=== PATIENT | male | born 1985 | race Caucasian/White ===

== ENCOUNTER 2018-09-13 18:31 | Emergency (ER) | payer OTHER ==
[~2018-09-13] VITALS: Ht 177.8 cm; Wt 86.2 kg
--- NOTE | 2018-09-13 18:44 | NUR ---
PATIENT TO CT AT THIS TIME, MONITOR IN PLACE, WITH ELANA PEREZ.
[2018-09-13] MEDS ORDERED: normal saline 1000ML IV soln IVB ONE (18:45)
[2018-09-13] MEDS ORDERED: ondansetron/PF 4mg/2ml inj IV ONE ×2 (18:50)
[2018-09-13] MEDS ORDERED: morphine 4 MG/ML inj SYRINge IV ONE ×3 (18:50→20:05)
[2018-09-13 18:54] LABS: BASOPHILS # (AUTO) 0.1 X10'3 (0-0.2); BASOPHILS % (AUTO) 0.3 % (0-1); EOSINOPHILS % (AUTO) 0 % (0-6); HEMATOCRIT 42.2 % (42.0-52.0); HEMOGLOBIN 14.4 g/dl (14.0-17.9); LYMPHOCYTES # (AUTO) 1.7 X10'3 (1.1-4.8); LYMPHOCYTES % (AUTO) 7.5 % (21-51); MEAN CORPUSCULAR HEMOGLOBIN 30.1 PG (27.0-31.0); MEAN CORPUSCULAR HGB CONC 34.1 g/dL (33.0-36.5); MEAN CORPUSCULAR VOLUME 88.4 FL (78-98); MEAN PLATELET VOLUME 8.3 FL (7.4-10.4); MONOCYTES # (AUTO) 1.4 X10'3 (0-0.9); MONOCYTES % (AUTO) 5.8 % (2-12); NEUTROPHILS # (AUTO) 20.2 X10'3 (1.8-7.7); NEUTROPHILS % (AUTO) 86.4 % (42-75); PLATELET COUNT 371 X10'3 (140-440); RED BLOOD COUNT 4.77 X10'6 (4.70-6.10); RED CELL DISTRIBUTION WIDTH 13.2 % (11.5-14.5); WHITE BLOOD COUNT 23.3 X10'3 (4.5-11.0)
[2018-09-13] MEDS ORDERED: iohexol 300mg/ml 100ml inj. ONE (18:58)
--- NOTE | 2018-09-13 19:02 | NUR ---
BACK FROM CT AT THIS TIME.
--- NOTE | 2018-09-13 19:03 | NUR ---
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
[2018-09-13 19:10] LABS: INR 1.1 INR
[2018-09-13 19:12] LABS: ALANINE AMINOTRANSFERASE 49 U/L (12-78); ALBUMIN 4.5 G/DL (3.4-5.0); ALBUMIN/GLOBULIN RATIO 1.7 (1.1-1.5); ALKALINE PHOSPHATASE 52 IU/L (46-116); ANION GAP 10 (8-16); ASPARTATE AMINO TRANSFERASE 41 U/L (10-37); BILIRUBIN,TOTAL 0.5 MG/DL (0.1-1.0); BLOOD UREA NITROGEN 28 MG/DL (7-18); BUN/CREATININE RATIO 26.7 (5.4-32.0); CALCIUM 9.3 MG/DL (8.5-10.1); CHLORIDE 104 MMOL/L (99-107); CREATININE 1.05 MG/DL (0.60-1.10); GLUCOSE 131 MG/DL (70-104); POTASSIUM 3.9 MMOL/L (3.5-5.1); SODIUM 140 MMOL/L (135-145); TOTAL CARBON DIOXIDE 25.8 MMOL/L (24-32); TOTAL PROTEIN 7.1 G/DL (6.4-8.2); eGFR 82 ML/MIN
[2018-09-13 19:34] LABS: CLARITY,URINE CLEAR (Clear); COLOR,URINE YELLOW (Yellow); GLUCOSE, URINE NEGATIVE (Neg); KETONES,URINE TRACE mg/dl (Neg); LEUKOCYTE ESTERASE ,URINE NEGATIVE (Neg); NITRITES, URINE NEGATIVE (Neg); OCCULT BLOOD,URINE SMALL (Neg); PROTEIN,URINE NEGATIVE (Neg); UROBILINOGEN,URINE 0.2 E.U/dL (0.2-1.0)
[2018-09-13 19:46] LABS: UA COLLECTION TYPE VOIDED
--- NOTE | 2018-09-13 19:50 | NUR ---
DR REDMAN USED LOCAL ANESTHETIC TO HIS LEFT THUMB.
[2018-09-13] MEDS ORDERED: ceFAZolin 1GM/D5W- ADD-VANTAGE 50 ML IV ONE (19:55)
[2018-09-13 20:05] LABS: BACTERIA,URINE FEW /HPF (Neg); RBC,URINE 0-2 /HPF (0-2); SQUAMOUS EPITHELIAL CELL,UR FEW /LPF (FEW); WBC,URINE 0-4 /HPF (0-4)
--- NOTE | 2018-09-13 20:14 | NUR ---
ALL OF HIS WOUNDS WERE CLEANSED WITH NS WITH A LITTLE H2O2 IN IT. HE HAS BEEN REMOVED FROM ALL C SPINE. HOB 40 DEGREES. HIS RIGHT SIDE OF HIS HEAD HAS AN ICE PACK ON IT. 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 HE IS TOLERATING EVERYTHING FAIRLY WELL, MOSTLY CONCERNED ABOUT BEING OUT OF WORK.
--- NOTE | 2018-09-13 20:30 | NUR ---
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 HE REMAINS ALERT, VISITING APPROPRIATELY AND NO NEW DEFICITS, MOVING ALL EXTREMITIES WELL.
--- NOTE | 2018-09-13 20:31 | NUR ---
PA AT BS STITCHING LEFT THUMB/HAND. PT TOLERATING PROCEDURE WELL.
[2018-09-13] MEDS ORDERED: NO HOME MEDS (20:33)
--- NOTE | 2018-09-13 21:04 | NUR ---
CALL AT THIS TIME TO ELANA OGLESBY AT [facility], ALL QUESTIONS AND CONCERNS ADDRESSED, HOISTING LABORER RICKY MADE AWARE.
[2018-09-13 21:20] VITALS: BP 133/71
== END 2018-09-13 21:24 | disposition short-term general hospital (02) ==
LOC: ER 18:32
DX: S02.81XB Fracture of other specified skull and facial bones, right side, initial encounter for open fracture (principal); S02.40EA Zygomatic fracture, right side, initial encounter for closed fracture; S61.412A Laceration without foreign body of left hand, initial encounter; S49.91XA Unspecified injury of right shoulder and upper arm, initial encounter; Z88.2 Allergy status to sulfonamides; V49.88XA Car occupant (driver) (passenger) injured in other specified transport accidents, initial encounter; Y93.89 Activity, other specified; Y92.413 State road as the place of occurrence of the external cause; Y99.9 Unspecified external cause status
CPT/HCPCS: 12001; 36415; 70450; 70487; 70491; 71045; 73030; 80053; 81001; 85025; 85610; 96374; 96375; 96376; 99285; J0690; J2270; J2405; J7030; Q9967